=== PATIENT | female | born 1940 | race Caucasian/White ===

== ENCOUNTER 2021-10-20 16:20 | Outpatient (CLI) | payer MEDICARE, BC, SELFPAY ==
[2021-10-20 19:10] LABS: Chloride* 107 mmol/L (96-114); Potassium* 4.1 mmol/L (3.6-5.1); Sodium* 137 mmol/L (135-149)
[2021-10-20 19:13] LABS: Carbon Dioxide* 25 mmol/L (20-32); Cholesterol* 159 mg/dL (90-199); Creatinine* 0.5 mg/dL (0.5-1.5)
[2021-10-20 19:14] LABS: Blood Urea Nitrogen* 15 mg/dL (7-30); Calcium* 8.6 mg/dL (8.4-10.6); Glucose* 232 mg/dL (60-115); HDL Cholesterol* 39 mg/dL (>=50); LDL Cholesterol Calculated 101 mg/dL (<100); Triglycerides* 97 mg/dL (40-149)
== END 2021-10-20 16:21 | disposition home or self-care (01) ==
PROVIDERS: PCP Family Medicine; Visit Provider Family Medicine
DX: E13.9 Other specified diabetes mellitus without complications (principal); R53.83 Other fatigue; Z13.6 Encounter for screening for cardiovascular disorders
CPT/HCPCS: 80048; 80061

== ENCOUNTER 2022-03-16 11:46 | Outpatient (CLI) | payer MEDICARE, BC, SELFPAY ==
[2022-03-16 22:18] LABS: Chloride* 108 mmol/L (96-114); Potassium* 4.2 mmol/L (3.6-5.1); Sodium* 141 mmol/L (135-149)
[2022-03-16 22:21] LABS: Blood Urea Nitrogen* 17 mg/dL (7-30); Carbon Dioxide* 27 mmol/L (20-32); Creatinine* 0.5 mg/dL (0.5-1.5); Estimated Glomerular Filt Rate 92 ml/min
[2022-03-16 22:22] LABS: Calcium* 8.9 mg/dL (8.4-10.6); Glucose* 173 mg/dL (60-115)
== END 2022-03-16 11:47 | disposition home or self-care (01) ==
LOC: LONREF 11:48
PROVIDERS: PCP Family Medicine; Visit Provider Family Medicine
DX: R82.90 Unspecified abnormal findings in urine (principal); R53.1 Weakness; R32 Unspecified urinary incontinence
CPT/HCPCS: 80048; 87086